=== PATIENT | male | born 1970 | race Two or more races ===

== ENCOUNTER 2018-02-03 16:05 | Emergency (ER) | payer SELFPAY ==
[~2018-02-03] VITALS: Ht 165.1 cm; Wt 68.0 kg
[2018-02-03] MEDS ORDERED: LORazepam Inj 2mg/ml 1ml IV ONE (16:30)
[2018-02-03 16:50] LABS: BASOPHILS % (AUTO) 1.3 % (0.0-2.0); EOSINOPHILS % (AUTO) 1.9 % (0.0-3.0); HEMATOCRIT 49.6 % (42.0-52.0); HEMOGLOBIN 17.2 G/DL (14.2-18.0); LYMPHOCYTES % (AUTO) 32.2 % (20.0-45.0); MEAN CORPUSCULAR VOLUME 92 FL (80-99); MONOCYTES % (AUTO) 6.9 % (1.0-10.0); NEUTROPHILS % (AUTO) 57.7 % (45.0-75.0); PLATELET COUNT 294 K/UL (150-450); RED BLOOD COUNT 5.36 M/UL (4.70-6.10); RED CELL DISTRIBUTION WIDTH 11.6 % (11.6-14.8); WHITE BLOOD COUNT 7.4 K/UL (4.8-10.8)
[2018-02-03 17:05] LABS: ANION GAP 13 mmol/L (5-15); BLOOD UREA NITROGEN 5 mg/dL (7-18); CALCIUM 9.4 MG/DL (8.5-10.1); CARBON DIOXIDE 24 MMOL/L (21-32); CHLORIDE 105 MMOL/L (98-107); CREATININE 0.8 MG/DL (0.55-1.30); POTASSIUM 3.8 MMOL/L (3.5-5.1); SODIUM 142 MMOL/L (136-145)
--- NOTE | 2018-02-03 17:12 | Diagnostic Imaging Report ---
Indication: Altered mental status Technique: Continuous helical CT scanning of the head was performed without intravenous contrast material. Axial and coronal 5 mm sections were generated. Radiation dose was minimized using automated exposure control Dose: Total Dose Length Product - DLP 1439.[address] Dose Index - CTDIvol(s) 70.38 mGy. Comparison: none Findings: The ventricular system is normal in size and configuration. There is no shift of midline structures. No abnormal extra-axial fluid collections are noted. There is no evidence of intracerebral bleeding. No other abnormal high or low density areas are noted within the brain. Navarro-white differentiation is normal. The calvarium is intact. The visualized orbits and sinuses are unremarkable. Mastoids are clear Impression: Normal CT scan of the head without contrast material. The CT scanner at [facility] is accredited by the [employer] and the scans are performed using protocols designed to limit radiation exposure to as low as reasonably achievable to attain images of sufficient resolution adequate for diagnostic evaluation.
[2018-02-03 17:14] LABS: ALANINE AMINOTRANSFERASE 38 U/L (12-78); ALBUMIN/GLOBULIN RATIO 0.9 (1.0-2.7); ALKALINE PHOSPHATASE 76 U/L (46-116); ASPARTATE AMINO TRANSFERASE 38 U/L (15-37); BILIRUBIN,TOTAL 0.5 MG/DL (0.2-1.0)
[2018-02-03 17:32] VITALS: BP 128/97
[2018-02-03 17:39] VITALS: BP 128/97
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
--- NOTE | 2018-02-04 16:32 | Cardiology Report ---
APPROVED REPORT EKG Measurement Heart [id number] NE 130P40 [id number] Normal sinus rhythm Normal ECG
== END 2018-02-03 17:39 | disposition home or self-care (01) ==
LOC: EDBD 16:05 → EMR 16:39
DX: F10.929 Alcohol use, unspecified with intoxication, unspecified (principal); R41.82 Altered mental status, unspecified; F41.8 Other specified anxiety disorders
CPT/HCPCS: 36415; 70450; 80053; 80307; 85025; 93005; 96361; 96374; 99284; G0480; 80329